=== PATIENT | female | born 1985 | race Caucasian/White ===

== ENCOUNTER 2017-11-17 20:36 | Inpatient (IN) | payer MEDICAID ==
[~2017-11-17] VITALS: Ht 167.6 cm; Wt 84.9 kg
[2017-11-17] MEDS ORDERED: SERT50TA12 PO (21:39)
[2017-11-17] MEDS ORDERED: GABA-529 PO (21:39)
[2017-11-17 21:49] LABS: BASOPHILS % (AUTO) 0.8 % (0.0-2.0); EOSINOPHILS % (AUTO) 1.5 % (1.0-6.0); HEMATOCRIT 38.8 % (36-46); LYMPHOCYTES # (AUTO) 2.3 K/uL (1.0-4.8); LYMPHOCYTES % (AUTO) 27.2 % (22.0-44.0); MEAN CORPUSCULAR HEMOGLOBIN 28.9 pg (26.0-34.0); MEAN CORPUSCULAR HGB CONC 33.5 G/dL (31.0-37.0); MEAN CORPUSCULAR VOLUME 86 fL (80-100); MONOCYTES # (AUTO) 0.7 K/uL (0.1-1.0); MONOCYTES % (AUTO) 8.3 % (2.0-9.0); NEUTROPHILS # (AUTO) 5.3 K/uL (1.8-7.7); NEUTROPHILS % (AUTO) 62.2 % (40.0-70.0); PLATELET COUNT (AUTO) 390 K/uL (150-450); RED BLOOD CELL COUNT(AUTO) 4.49 MIL/uL (4.00-5.20); RED CELL DISTRIBUTION WIDTH 14.5 % (11.5-14.5)
[2017-11-17 21:58] LABS: AMPHET/METH SCREEN,URINE NEGATIVE (NEGATIVE); BARBITURATE SCREEN, URINE NEGATIVE (NEGATIVE); BENZODIAZEPINES SCREEN,URINE NEGATIVE (NEGATIVE); CANNABINOID SCREEN,URINE NEGATIVE (NEGATIVE); COCAINE SCREEN,URINE NEGATIVE (NEGATIVE); METHADONE SCREEN, URINE NEGATIVE (NEGATIVE); OPIATE SCREEN,URINE NEGATIVE (NEGATIVE)
[2017-11-17 22:01] LABS: PHENCYCLIDINE SCREEN,URINE NEGATIVE (NEGATIVE)
[2017-11-17 22:07] LABS: ANION GAP 8 mmol/L (8-16); CALCIUM, TOTAL 8.8 mg/dL (8.8-10.5); CARBON DIOXIDE 29 mmol/L (22-29); CHLORIDE 104 mmol/L (98-107); CREATININE 0.77 mg/dL (0.60-1.30); GLOMERULAR FILTR. RATE CALC > 60 mL/min (>60); GLUCOSE,RANDOM 101 mg/dL (70-110); SODIUM SERUM 141 mmol/L (136-145); UREA NITROGEN, BLOOD 15 mg/dL (7-18)
[2017-11-17 22:13] LABS: ALANINE AMINOTRANSFERASE 22 U/L (12-78); ALBUMIN 3.9 g/dL (3.4-5.0); ALKALINE PHOSPHATASE 95 U/L (46-116); ASPARTATE AMINOTRANSFERASE 20 U/L (15-37); BILIRUBIN,TOTAL 0.3 mg/dL (0.1-1.0); TOTAL PROTEIN, SERUM 8.1 g/dL (6.4-8.2)
[2017-11-17] MEDS ORDERED: LORazepam 1 MG TABLET PO PRN (22:30)
[2017-11-17] MEDS ORDERED: HALOPERIDOL 5 MG TABLET PO PRN (22:30)
[2017-11-17 22:47] LABS: CHOL/HDL RATIO 2.9 (3.9-5.7); CHOLESTEROL 213 mg/dL (131-200); FREE T4 (FREE THYROXINE) 0.72 ng/dL (0.76-1.46); HDL CHOLESTEROL 74 mg/dL (40-60); LDL CHOL (CALC.) 121 mg/dL (0-130); THYROID STIMULATING HORMONE 2.14 uIU/mL (0.36-3.74); TRIGLYCERIDES 89 mg/dL (15-150)
[2017-11-18 03:40] VITALS: BP 120/69
[2017-11-18 03:50] VITALS: BP 120/69
[2017-11-18] MEDS: SERTRALINE HCL 50 MG TABLET PO SCH (10:40)
[2017-11-18 13:43] VITALS: BP 103/68
[2017-11-18 13:48] VITALS: BP 103/68
[2017-11-18] MEDS ORDERED: MAGNESIUM HYDROXIDE SUSPENSION 30 ML UDCUP PO PRN (14:30)
[2017-11-18] MEDS ORDERED: DOCUSATE SODIUM 100 MG CAPSULE PO PRN (14:30)
[2017-11-18] MEDS ORDERED: PETROLATUM,WHITE 71 GM JELLY TP PRN (14:30)
[2017-11-18] MEDS ORDERED: IBUPROFEN 400 MG TABLET PO PRN (14:30)
[2017-11-18] MEDS ORDERED: CloNIDine HCL 0.1 MG TABLET PO PRN (14:30)
[2017-11-18] MEDS ORDERED: MAG HYDROX/AL HYDROX/SIMETH ES 30 ML SUSPENSION UDCUP PO PRN (14:30)
[2017-11-18] MEDS ORDERED: LOPERAMIDE HCL 2 MG CAPSULE PO PRN (14:30)
[2017-11-18] MEDS ORDERED: ALBUTEROL SULFATE HFA 90 MCG/PUFF 8 GM INHALER IH PRN (14:30)
[2017-11-18] MEDS ORDERED: NICOTINE 14 MG/24 HOUR PATCH TD PRN (14:30)
[2017-11-18] MEDS ORDERED: ONDANSETRON HCL 4 MG TABLET PO PRN (14:30)
[2017-11-18 16:59] VITALS: BP 96/67
[2017-11-18] MEDS: ZOLPIDEM TARTRATE 10 MG TABLET PO PRN (20:42)
[2017-11-19] MEDS: LEVOTHYROXINE SODIUM 50 MCG TABLET PO SCH (06:55)
[2017-11-19 08:15] VITALS: BP 96/65
[2017-11-19] MEDS: SERTRALINE HCL 50 MG TABLET PO SCH (10:18)
[2017-11-19 17:11] VITALS: BP 114/57
[2017-11-19] MEDS: ZOLPIDEM TARTRATE 10 MG TABLET PO PRN (21:34)
[2017-11-20] MEDS: LEVOTHYROXINE SODIUM 50 MCG TABLET PO SCH (06:58)
[2017-11-20] MEDS: SERTRALINE HCL 50 MG TABLET PO SCH (08:55)
[2017-11-20 10:32] VITALS: BP 105/60
[2017-11-20] MEDS ORDERED: LEVO50TA11 PO (13:31)
== END 2017-11-20 19:30 | disposition home or self-care (01) | DRG 751 ==
LOC: EMS 20:37 → 3EI 22:51
DX: F33.2 Major depressive disorder, recurrent severe without psychotic features (principal); R45.851 Suicidal ideations; E03.9 Hypothyroidism, unspecified; E78.5 Hyperlipidemia, unspecified; F41.1 Generalized anxiety disorder; Z98.82 Breast implant status; Z79.899 Other long term (current) drug therapy; Z88.6 Allergy status to analgesic agent; Z88.8 Allergy status to other drugs, medicaments and biological substances; Z79.890 Hormone replacement therapy
CPT/HCPCS: 83036; 84439; 84443; 99285; G0480

== ENCOUNTER 2018-11-04 17:54 | Inpatient (IN) | payer MEDICAID ==
[~2018-11-04] VITALS: Ht 167.6 cm; Wt 87.6 kg
[~2018-11-04 17:54] MED LIST: LEVO50TA11 PO; SERT50TA12 PO
[2018-11-04 19:43] LABS: BASOPHILS % (AUTO) 0.6 % (0.0-2.0); EOSINOPHILS % (AUTO) 0.8 % (1.0-6.0); HEMOGLOBIN 12.7 g/dL (12.0-16.0); LYMPHOCYTES % (AUTO) 20.9 % (22.0-44.0); MEAN CORPUSCULAR HEMOGLOBIN 28.9 pg (26.0-34.0); MEAN CORPUSCULAR HGB CONC 32.4 G/dL (31.0-37.0); MEAN CORPUSCULAR VOLUME 89 fL (80-100); MONOCYTES # (AUTO) 0.5 K/uL (0.1-1.0); MONOCYTES % (AUTO) 5.5 % (2.0-9.0); NEUTROPHILS # (AUTO) 6.8 K/uL (1.8-7.7); NEUTROPHILS % (AUTO) 72.2 % (40.0-70.0); PLATELET COUNT (AUTO) 426 K/uL (150-450); RED BLOOD CELL COUNT(AUTO) 4.39 MIL/uL (4.00-5.20); RED CELL DISTRIBUTION WIDTH 13.4 % (11.5-14.5)
[2018-11-04 19:56] LABS: AMPHET/METH SCREEN,URINE NEGATIVE (NEGATIVE); BARBITURATE SCREEN, URINE NEGATIVE (NEGATIVE); BENZODIAZEPINES SCREEN,URINE NEGATIVE (NEGATIVE); CANNABINOID SCREEN,URINE NEGATIVE (NEGATIVE); COCAINE SCREEN,URINE NEGATIVE (NEGATIVE); METHADONE SCREEN, URINE NEGATIVE (NEGATIVE); OPIATE SCREEN,URINE NEGATIVE (NEGATIVE)
[2018-11-04 20:01] LABS: PHENCYCLIDINE SCREEN,URINE NEGATIVE (NEGATIVE)
[2018-11-04 20:08] LABS: ANION GAP 6 mmol/L (8-16); CALCIUM, TOTAL 9.6 mg/dL (8.8-10.5); CARBON DIOXIDE 29 mmol/L (22-29); CHLORIDE 102 mmol/L (98-107); CREATININE 0.89 mg/dL (0.60-1.30); GLOMERULAR FILTR. RATE CALC > 60 mL/min (>60); GLUCOSE,RANDOM 103 mg/dL (70-110); POTASSIUM 3.8 mmol/L (3.5-5.1); SODIUM SERUM 137 mmol/L (136-145); UREA NITROGEN, BLOOD 17 mg/dL (7-18)
[2018-11-04 20:23] LABS: ALANINE AMINOTRANSFERASE 16 U/L (12-78); ALBUMIN 3.9 g/dL (3.4-5.0); ALKALINE PHOSPHATASE 99 U/L (46-116); ASPARTATE AMINOTRANSFERASE 13 U/L (15-37); THYROID STIMULATING HORMONE 1.11 uIU/mL (0.36-3.74); TOTAL PROTEIN, SERUM 7.6 g/dL (6.4-8.2)
[2018-11-04 20:34] LABS: BILIRUBIN,TOTAL 0.2 mg/dL (0.1-1.0)
[2018-11-04 20:44] LABS: LITHIUM < 0.20 mmol/L (0.60-1.20)
[2018-11-04] MEDS ORDERED: HALOPERIDOL 5 MG TABLET PO PRN (22:15)
[2018-11-04] MEDS: LORazepam 2 MG TABLET PO PRN (22:52)
[2018-11-05 01:31] VITALS: BP 128/69
[2018-11-05 01:38] VITALS: BP 128/69
[2018-11-05 08:26] VITALS: BP 120/67
[2018-11-05] MEDS ORDERED: LOPERAMIDE HCL 2 MG CAPSULE PO PRN (08:45)
[2018-11-05] MEDS ORDERED: DOCUSATE SODIUM 100 MG CAPSULE PO PRN (08:45)
[2018-11-05] MEDS ORDERED: MAGNESIUM HYDROXIDE SUSPENSION 30 ML UDCUP PO PRN (08:45)
[2018-11-05] MEDS ORDERED: BACITRACIN 28.4 GM OINTMENT TP PRN (08:45)
[2018-11-05] MEDS ORDERED: CloNIDine HCL 0.1 MG TABLET PO PRN (08:45)
[2018-11-05] MEDS ORDERED: IBUPROFEN 600 MG TABLET PO PRN (08:45)
[2018-11-05] MEDS ORDERED: ONDANSETRON HCL 4 MG TABLET PO PRN (08:45)
[2018-11-05] MEDS ORDERED: MAG HYDROX/AL HYDROX/SIMETH ES 30 ML SUSPENSION UDCUP PO PRN (08:45)
[2018-11-05] MEDS ORDERED: OMEPRAZOLE 20 MG CAPSULE PO PRN (08:45)
[2018-11-05] MEDS ORDERED: BENZOCAINE/MENTHOL LOZENGE MM PRN (08:45)
[2018-11-05] MEDS ORDERED: PETROLATUM,WHITE 28 GM JELLY TP PRN (08:45)
[2018-11-05] MEDS: LITHIUM CARBONATE 300 MG CAPSULE PO SCH ×2 (12:29→16:47)
[2018-11-05 16:39] VITALS: BP 117/72
[2018-11-05 19:24] VITALS: BP 121/70
[2018-11-06] MEDS: LEVOTHYROXINE SODIUM 50 MCG TABLET PO SCH (06:30)
[2018-11-06 06:52] VITALS: BP 118/70
[2018-11-06 08:13] VITALS: BP 103/63
[2018-11-06] MEDS: LITHIUM CARBONATE 300 MG CAPSULE PO SCH ×2 (08:23→16:23)
[2018-11-06 16:08] VITALS: BP 107/68
[2018-11-06] MEDS: LORazepam 2 MG TABLET PO PRN (17:00)
[2018-11-07 06:30] VITALS: BP 108/62
[2018-11-07] MEDS: LEVOTHYROXINE SODIUM 50 MCG TABLET PO SCH (06:30)
[2018-11-07 08:07] VITALS: BP 105/63
[2018-11-07] MEDS: LITHIUM CARBONATE 300 MG CAPSULE PO SCH ×2 (08:54→16:10)
[2018-11-07 16:06] VITALS: BP 116/71
[2018-11-07] MEDS: ZOLPIDEM TARTRATE 10 MG TABLET PO PRN (20:58)
[2018-11-08 05:41] VITALS: BP 108/64
[2018-11-08] MEDS: LEVOTHYROXINE SODIUM 50 MCG TABLET PO SCH (06:32)
[2018-11-08 08:26] VITALS: BP 111/60
[2018-11-08] MEDS: LITHIUM CARBONATE 300 MG CAPSULE PO SCH ×2 (08:41→16:07)
[2018-11-08 16:03] VITALS: BP 114/73
[2018-11-09 06:06] VITALS: BP 100/62
[2018-11-09] MEDS: LEVOTHYROXINE SODIUM 50 MCG TABLET PO SCH (06:42)
[2018-11-09 08:32] VITALS: BP 125/70
[2018-11-09] MEDS: LITHIUM CARBONATE 300 MG CAPSULE PO SCH (08:33)
[2018-11-09 16:21] VITALS: BP 117/76
[2018-11-09] MEDS: LITHIUM CARBONATE 600 MG CAPSULE PO SCH (20:11)
[2018-11-09] MEDS: ZOLPIDEM TARTRATE 10 MG TABLET PO PRN (21:02)
[2018-11-10 05:58] VITALS: BP 111/68
[2018-11-10] MEDS: LEVOTHYROXINE SODIUM 50 MCG TABLET PO SCH (06:49)
[2018-11-10 08:22] VITALS: BP 102/71
[2018-11-10] MEDS: LITHIUM CARBONATE 300 MG CAPSULE PO SCH (09:06)
[2018-11-10 16:07] VITALS: BP 112/69
[2018-11-10] MEDS: LITHIUM CARBONATE 600 MG CAPSULE PO SCH (20:10)
[2018-11-11 00:34] VITALS: BP 110/62
[2018-11-11] MEDS: LEVOTHYROXINE SODIUM 50 MCG TABLET PO SCH (06:13)
[2018-11-11] MEDS: LITHIUM CARBONATE 300 MG CAPSULE PO SCH (09:57)
[2018-11-11 10:08] VITALS: BP 103/64
[2018-11-11] MEDS ORDERED: LITH300C3 PO ×2 (10:31)
== END 2018-11-11 15:17 | disposition home or self-care (01) | DRG 753 ==
LOC: EMS 17:55 → B2S 22:12
PROVIDERS: ADMIT Psychiatry & Neurology Psychiatry; ATTEND Psychiatry & Neurology Psychiatry
DX: F31.9 Bipolar disorder, unspecified (principal); R45.851 Suicidal ideations; F22 Delusional disorders; E78.5 Hyperlipidemia, unspecified; E03.9 Hypothyroidism, unspecified; E66.9 Obesity, unspecified; F41.9 Anxiety disorder, unspecified; G47.00 Insomnia, unspecified; Z91.5 Personal history of self-harm; Z98.82 Breast implant status; Z88.8 Allergy status to other drugs, medicaments and biological substances; Z68.31 Body mass index [BMI] 31.0-31.9, adult
CPT/HCPCS: 84443; G0480